=== PATIENT | female | born 1970 | race Caucasian/White ===

== ENCOUNTER 2016-07-28 07:23 | Emergency (ER) | payer OTHER ==
[~2016-07-28] VITALS: Ht 152.4 cm; Wt 65.4 kg
[~2016-07-28 07:23] MED LIST: EXCEDRIN EXT1 TABLET PO; MOTRIN400 MG PO; TYLENOL REGULA325 MG PO; ZYRTEC10 M2 PO
[2016-07-28] MEDS ORDERED: PREDNISONE20 MG PO (09:56)
[2016-07-28] MEDS ORDERED: TESSALON200 MG PO (09:56)
[2016-07-28] MEDS ORDERED: VENTOLIN HFA18 GM IH (09:56)
[2016-07-28 10:29] VITALS: BP 165/83
== END 2016-07-28 10:31 | disposition home or self-care (01) ==
LOC: EME 07:23
DX: J06.9 Acute upper respiratory infection, unspecified (principal); J45.901 Unspecified asthma with (acute) exacerbation; J04.0 Acute laryngitis
CPT/HCPCS: 71020; 80048; 85027; 94640; 94640 76; 99281; 99284

== ENCOUNTER 2016-10-19 15:30 | Emergency (ER) | payer OTHER ==
[~2016-10-19] VITALS: Ht 154.9 cm; Wt 62.0 kg
[~2016-10-19 15:30] MED LIST changes: +PREDNISONE20 MG PO; +TESSALON200 MG PO; +VENTOLIN HFA18 GM IH
[2016-10-19 17:33] LABS: EOSINOPHIL (%) 1.7 % (0-5); EOSINOPHIL COUNT 0.1 K/uL (0-0.3); HEMATOCRIT 35.2 % (36.0-46.0); IMMATURE GRANULOCYTE (%) 0.3 % (0.0-0.7); INSTRUMENT ABS NEUTROPHIL CT 4.5 K/uL; LYMPHOCYTE COUNT 1.9 K/uL (1.0-2.8); MCH 25.8 PG (29.0-34.0); MCHC 32.4 G/DL (30.0-36.0); MCV 79.6 FL (83-99); MEAN PLAT.VOLUME 9.9 uM^3 (9.5-12.4); MONOCYTE (%) 5.4 % (3-12); MONOCYTE COUNT 0.4 K/uL (0-0.8); NEUTROPHIL (%) 64.6 % (45-76); NEUTROPHIL COUNT 4.5 K/uL (1.8-6.4); PLATELET COUNT 371 K/uL (156-360); RBC DIS.WIDTH-CV 15.2 % (11.8-14.6); RED BLOOD COUNT 4.42 M/uL (3.80-5.20)
[2016-10-19 17:42] LABS: CHLORIDE 106 mEq/L (99-109); POTASSIUM 3.5 mEq/L (3.7-5.4); SODIUM 139 mEq/L (136-147)
[2016-10-19 17:44] LABS: GLUCOSE 99 mg/dL (70-99)
[2016-10-19 17:45] LABS: ANION GAP 10 MEQ/L (2-14)
[2016-10-19 17:46] LABS: TOTAL BILIRUBIN 0.4 mg/dL (0.0-1.0)
[2016-10-19 17:47] LABS: ALKALINE PHOSPHATASE 74 IU/L (3-129)
[2016-10-19 17:48] LABS: GFR ESTIMATE (CALCULATED) > 59 mL/min/
[2016-10-19 17:49] LABS: UREA NITROGEN (BUN) 6 mg/dL (9-23)
[2016-10-19 17:51] LABS: LIPASE 17 U/L (1.0-51.0)
[2016-10-19 19:35] LABS: ADD MIUA? NO; BILIRUBIN NEGATIVE; BLOOD NEGATIVE; COLOR YELLOW ((YELLOW)); GLUCOSE (STRIP) NEGATIVE; KETONES 20; LEUKOCYTES NEGATIVE; NITRITE NEGATIVE; PROTEIN (STRIP) 30; SPECIFIC GRAVITY 1.017 (1.000-1.030); UROBILINOGEN 0.2 MG/DL (0.2-1.0)
[2016-10-19 20:01] VITALS: BP 132/89
[2016-10-19] MEDS ORDERED: ZOFRAN ODT4 MG PO (20:30)
== END 2016-10-19 20:52 | disposition home or self-care (01) ==
LOC: EME 15:30
PROVIDERS: Physician Assistant
DX: G89.18 Other acute postprocedural pain (principal); K59.00 Constipation, unspecified; R11.0 Nausea; Z90.710 Acquired absence of both cervix and uterus; Z88.6 Allergy status to analgesic agent
CPT/HCPCS: 74177; 80053; 81003; 83690; 85025; 99281; 99284; J1885; J2405; J3010; J7030